=== PATIENT | male | born 1970 | race Caucasian/White ===

== ENCOUNTER → 2021-12-23 12:23 | Outpatient (CLI) | payer OTHER, SELFPAY ==
--- NOTE | ~2021-12-23 | US_ITS ---
EXAMINATION: US abdomen limited DATE: 12/23/2021 12:56 INDICATION: Left upper quadrant pain TECHNIQUE: Targeted ultrasound of the left abdomen is obtained in the area of clinical concern. COMPARISON: None available FINDINGS: No abnormal mass is identified in the area of clinical concern. There is no sonographic ev idence of ventral hernia. Normal subcutaneous tissues are seen. IMPRESSION: 1. No sonographic correlate for the patient's symptoms. Reviewed, dictated and finalized at location B.
== END ==
PROVIDERS: PCP Internal Medicine; Visit Provider Internal Medicine
DX: R10.12 Left upper quadrant pain (principal); M79.18 Myalgia, other site
CPT/HCPCS: 76705

== ENCOUNTER 2024-12-26 12:08 | Emergency (ER) | payer OTHER, SELFPAY | END 2024-12-26 12:15 | disposition home or self-care (01) | LOC: EXPGOSH 02-16 12:14 | DX: Z53.21 Procedure and treatment not carried out due to patient leaving prior to being seen by health care provider (principal) | CPT/HCPCS: 99199 ==